=== PATIENT | female | born 2000 | race Two or more races ===

== ENCOUNTER 2024-12-02 14:46 | Emergency (ER) | payer BC, SELFPAY ==
[2024-12-02 14:48] VITALS: BP 147/106; PULSE 95; RESP 20; TEMP 36.8; O2SAT 99
--- NOTE | 2024-12-02 14:53 | ED.GENADULT ---
HPI - General Adult General Chief complaint: Allergic Reaction <Eloise Francis PA-C - Last Filed: 12/02/24 14:55> Stated complaint: throat feeling funny after taking Prozac <Eloise Francis PA-C - Last Filed: 12/02/24 14:55> Time Seen by Provider: 12/02/24 17:00 <Eloise Francis PA-C - Last Filed: 12/02/24 14:55> Focused HPI: 24-year-old female presents to the emergency department with concerns for an allergic reaction. Patient took her 1st dose of Prozac at 1:30 p.m. today approximately 30 minutes later began developing tightness in her throat. 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 She states she did have tingling in her tongue that lasted for about a minute but has resolved. She also had shortness of breath earlier but that has since resolved. She denies difficulty breathing, lip or tongue swelling, wheezing, nausea or vomiting, abdominal pain, rash. She has no known allergies. Denies other new exposures or medications. She has not taken anything for her symptoms. GENERAL: Well-appearing, well-nourished, and in no acute distress. HEAD: Normocephalic, atraumatic. ENT: No lip, tongue, oral or pharyngeal edema, no uvular hydrops. No airway compromise. No hoarseness. Patient is speaking in full sentences with a clear airway. CHEST: Clear to auscultation. ?No respiratory distress. No wheezing HEART: Regular rate and rhythm.? NEURO: ?Alert and oriented x3. Patient screened in triage and initial orders placed.? ?Additional care and disposition to be based upon?diagnostic testing and treatment. <Eloise Francis PA-C - Last Filed: 12/02/24 14:55> Focused HPI: 24-year-old female presents to the emergency department with concerns for an allergic reaction. Patient took her 1st dose of Prozac at 1:30 p.m. today approximately 30 minutes later began developing tightness in her throat. 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 She states she did have tingling in her tongue that lasted for about a minute but has resolved. She also had shortness of breath earlier but that has since resolved. She denies difficulty breathing, lip or tongue swelling, wheezing, nausea or vomiting, abdominal pain, rash. She has no known allergies. Denies other new exposures or medications. She has not taken anything for her symptoms. GENERAL: Well-appearing, well-nourished, and in no acute distress. HEAD: Normocephalic, atraumatic. ENT: No lip, tongue, oral or pharyngeal edema, no uvular hydrops. No airway compromise. No hoarseness. Patient is speaking in full sentences with a clear airway. CHEST: Clear to auscultation. ?No respiratory distress. No wheezing HEART: Regular rate and rhythm.? NEURO: ?Alert and oriented x3. Patient screened in triage and initial orders placed.? ?Additional care and disposition to be based upon?diagnostic testing and treatment. <MICHELLE Newman Last Filed: 12/02/24 20:18> Source: patient <MICHELLE Newman Last Filed: 12/02/24 20:18> Mode of arrival: ambulatory <MICHELLE Newman Last Filed: 12/02/24 20:18> Limitations: no limitations <MICHELLE Newman Last Filed: 12/02/24 20:18> History of Present Illness HPI narrative: Agreement with above HPI. At the time of my evaluation, patient is asymptomatic. She is reporting significant improvement of symptoms. Denies any difficulty breathing or swallowing, rash. <MICHELLE Newman Last Filed: 12/02/24 20:18> Related Data Allergies/adverse reactions: Allergies Allergy/AdvReac Type Severity Reaction Status Date / Time fluoxetine (From Prozac) Allergy Intermediate difficulty Verified 12/02/24 17:57 swallowing <MICHELLE Apodaca Last Filed: 12/02/24 14:55> Review of Systems Review of Systems: All systems reviewed & are unremarkable except as noted in HPI. <MICHELLE Newman Last Filed: 12/02/24 20:18> All systems reviewed & are unremarkable except as noted in HPI and below <MICHELLE Newman Last Filed: 12/02/24 20:18> Exam Narrative: GENERAL: Well appearing, well-nourished, non-toxic, in no acute distress. HEAD: Normocephalic, atraumatic. ENT: No lip, tongue, oral or pharyngeal edema, no uvular hydrops. No airway compromise. No hoarseness. No stridor or distress. Patient is speaking in full sentences with a clear airway. RESPIRATORY: Airway patent, respirations nonlabored. Clear to auscultation bilaterally, no rales, rhonchi, wheezing. No stridor. CARDIOVASCULAR: Regular rate and rhythm MUSCULOSKELETAL: Moves all extremities. No gross deformities. SKIN: Warm, dry, normal color. NEURO: A&O X3. Speech clear. PSYCHIATRIC: Appropriate mood and affect. Normal interaction. <MICHELLE Newman Last Filed: 12/02/24 20:18> Course Vital Signs Vital signs: Vital Signs Temperature 98.2 F 12/02/24 14:48 Pulse Rate 95 12/02/24 14:48 Respiratory Rate 20 12/02/24 14:48 Blood Pressure 147/106 H 12/02/24 14:48 Pulse Oximetry 99 12/02/24 14:48 Oxygen Delivery Room Air 12/02/24 14:48 Temperature 98.2 F 12/02/24 14:48 Pulse Rate 97 12/02/24 18:15 Respiratory Rate 16 12/02/24 18:15 Blood Pressure 147/106 H 12/02/24 14:48 Pulse Oximetry 99 12/02/24 18:15 Oxygen Delivery Room Air 12/02/24 16:18 <MICHELLE Apodaca Last Filed: 12/02/24 14:55> Vital Signs Temperature 98.2 F 12/02/24 14:48 Pulse Rate 95 12/02/24 14:48 Respiratory Rate 20 12/02/24 14:48 Blood Pressure 147/106 H 12/02/24 14:48 Pulse Oximetry 99 12/02/24 14:48 Oxygen Delivery Room Air 12/02/24 14:48 Temperature 98.2 F 12/02/24 14:48 Pulse Rate 97 12/02/24 18:15 Respiratory Rate 16 12/02/24 18:15 Blood Pressure 147/106 H 12/02/24 14:48 Pulse Oximetry 99 12/02/24 18:15 Oxygen Delivery Room Air 12/02/24 16:18 <Maria Isabel Fang PA-C - Last Filed: 12/02/24 20:18> Medical Decision Making MDM Narrative Medical decision making narrative: Patient presented to ED with allergic reaction from Prozac, take 1st dose today, developed tightness in throat, tingling of tongue. Vital signs are stable upon arrival. No signs of airway compromise or anaphylaxis. No respiratory distress, stridor. Patient given Solu-Medrol, Benadryl, Pepcid in the ED after MSE in triage. Upon my evaluation, approximately 2.5 hours later, patient completely asymptomatic, states she is ready to go home. Denies any further symptoms. Will discharge on short course of prednisone over the next couple of days, advised to continue Benadryl/Pepcid as needed. Advised to follow-up with psychiatrist for further evaluation and medication management, advised to discontinue Prozac. Given strict return precautions. She agrees with plan. Comfortable discharge home. Discharged in stable condition. <MICHELLE Newman Last Filed: 12/02/24 20:18> Medical Records Medical records reviewed: Yes I reviewed the external patient's medical records. <MICHELLE Newman Last Filed: 12/02/24 20:18> Vital Signs Vital Signs: Vital Signs Temperature 98.2 F 12/02/24 14:48 Pulse Rate 95 12/02/24 14:48 Respiratory Rate 20 12/02/24 14:48 Blood Pressure 147/106 H 12/02/24 14:48 Pulse Oximetry 99 12/02/24 14:48 Oxygen Delivery Room Air 12/02/24 14:48 Temperature 98.2 F 12/02/24 14:48 Pulse Rate 97 12/02/24 18:15 Respiratory Rate 16 12/02/24 18:15 Blood Pressure 147/106 H 12/02/24 14:48 Pulse Oximetry 99 12/02/24 18:15 Oxygen Delivery Room Air 12/02/24 16:18 <Eloise Francis PA-C - Last Filed: 12/02/24 14:55> Vital Signs Temperature 98.2 F 12/02/24 14:48 Pulse Rate 95 12/02/24 14:48 Respiratory Rate 20 12/02/24 14:48 Blood Pressure 147/106 H 12/02/24 14:48 Pulse Oximetry 99 12/02/24 14:48 Oxygen Delivery Room Air 12/02/24 14:48 Temperature 98.2 F 12/02/24 14:48 Pulse Rate 97 12/02/24 18:15 Respiratory Rate 16 12/02/24 18:15 Blood Pressure 147/106 H 12/02/24 14:48 Pulse Oximetry 99 12/02/24 18:15 Oxygen Delivery Room Air 12/02/24 16:18 <MICHELLE Newman Last Filed: 12/02/24 20:18> Discharge Plan Discharge Clinical Impression: Adverse reaction to drug Qualifiers: Encounter type: initial encounter Qualified Code(s): T50.905A - Adverse effect of unspecified drugs, medicaments and biological substances, initial encounter Allergic reaction Qualifiers: Encounter type: initial encounter Qualified Code(s): T78.40XA - Allergy, unspecified, initial encounter <MICHELLE Apodaca Last Filed: 12/02/24 14:55> Patient Disposition: Home <MICHELLE Apodaca Last Filed: 12/02/24 14:55> Condition: Stable <MICHELLE Apodaca Last Filed: 12/02/24 14:55> Instructions: Antibiotic Form, Adverse Drug Reaction (ED), General Allergic Reaction (ED) <MICHELLE Apodaca Last Filed: 12/02/24 14:55> Additional Instructions: Avoid any further use of Prozac. Follow-up with your psychiatrist for further medication management. Take steroids as prescribed over next 3 days. You may also continue Benadryl/Pepcid as needed for further allergy type symptoms. Return to the ED if you experience new or worsening concerns, difficulty breathing or swallowing, unable to keep down food or drink, shortness of breath, diffuse rash, or any other symptoms of concern. <MICHELLE Apodaca Last Filed: 12/02/24 14:55> Patient Language: Mozambican <Eloise Francis PA-C - Last Filed: 12/02/24 14:55> Prescriptions: New prednisone 20 mg tablet 40 mg PO DAILY 3 Days Qty: 6 0RF <Eloise Francis PA-C - Last Filed: 12/02/24 14:55> Follow-up/Referrals: PHYSICIAN NOT ON STAFF,NONSTAFF [Primary Care Provider] - <Eloise Francis PA-C - Last Filed: 12/02/24 14:55> Time of Disposition: 17:59 <Eloise Francis PA-C - Last Filed: 12/02/24 14:55> 17:59 <Maria Isabel Fang PA-C - Last Filed: 12/02/24 20:18>
[2024-12-02] MEDS: methylPREDNISolone SOD SUCC 125 MG VIAL IV PUSH (15:02)
[2024-12-02] MEDS: diphenhydrAMINE HCl INJ 50 MG/ML VIAL IV PUSH (15:03)
[2024-12-02] MEDS: FAMOTIDINE 20 MG/2 ML VIAL IV PUSH (15:03)
[2024-12-02 16:18] VITALS: O2SAT 99
[2024-12-02 16:20] VITALS: PULSE 95; RESP 14; O2SAT 99
[2024-12-02 18:15] VITALS: PULSE 97; RESP 16; O2SAT 99
--- OUTSIDE RECORDS SUMMARY | 2024-12-02 18:25 | XMS_ITS | Clinical Summary ---
Author Organization [address] Address [address] [place] [id number] Care Team Providers Care Auto Wash Buffer Name Role Phone Unknown, Notinfile Primary Care Provider Unavail able Allergies No known active allergies Medications citalopram (CeleXA) 40 mg tablet Take 1 tablet (40 mg total) by mouth daily Active norgestimate-eth inyl estradioL (Tri-Estarylla) 0.18/0.215/0.25 mg-35 mcg (28) per tablet Take 1 tablet by mouth daily Active Active Problems No known active problems Social History Tobacco Use Types Packs/Day Years Used Date Smoking Tobacco: Some Days Cigarettes Tobacco Cessation:Ready to Q uit: Not Asked; Counseling Given: Not Answered Alcohol Use Standard Drinks/Week Comments Yes 0 (1 standard drink = 0.6 oz pur e alcohol) Personal Safety Answer Date Recorded Have you ever been in or are you currently in a harmful physical or emotional relationship or is someone making you feel afraid or unsafe? Denies 05/04/2023 Comments No Sex and Gender Information Value Date Recorded Sex Assigned at Not on file Legal Sex Female 12:09 PM CDT Gender Identity Not on file Sexual Orientation Not on file Obstetrics History Last Filed Vital Signs Vital Sign Reading Time Taken Comments Blood Pressure 131/85 05/04/2023 5:30 PM CDT Pulse 74 05/04/2023 5:30 PM CDT Temperature 37.2 C (98.9 F) 05/04/2023 5:30 PM CDT Respiratory Rate 16 05/04/2023 5:30 PM CDT Oxygen Saturation 100% 05/04/2023 5:30 PM CDT Inhaled Oxygen Concentration - - Weight 49.9 kg (110 lb) 05/04/2023 5:30 PM CDT Height 149.9 cm (4' 11 ) 05/04/2023 5:30 PM CDT Body Mass Index 22.22 05/04/2023 5:30 PM CDT Plan of Treatment Health Maintenance Due Date Last Done Comments Cervical Cancer Screening 1999 Depression Screening 1999 Hepatitis C Screening 1999 Pneumococcal vaccine <65 (1 of 1 - PPSV23) 2005 09/19/2000, 03/28/2000, 01/11/2000, Additional history exists Regular Well Visit/Exam 18-64 2017 Influenza Vaccine (#1) 2024 , 07/27/2014, 06/18/2004, Additional history exists DTaP/Tdap/Td Vaccine (8 - Td or Tdap) 12/19/2026 12/19/2016, 03/16/2010, 03/31/2005, Additional history exists Hepatitis B Screening Completed 1999 , 1999, 1999 Varicella Vaccines Completed 03/28/2006, 03/28/2000 HPV Vaccines Completed 11/26/2013, 05/24, 04/08/2013 Insurance [employer] OOS [employer] OOS Member Subscriber Plan / Payer (Ef fective 2022-Present) Name:Aisha Fofana Relation to Subscriber:Child Name:FRAN FOFANA Date of :1962 Address: [address] [place] [address] Payer ID:[id number] (NAIC) Type:[employer] Address: [facility] [id number] [place] [id number] Care Teams Auto Wash Buffer Relationship Specialty Start Date End Date Unknown, Notinfile PCP - General 05/04/23
--- OUTSIDE RECORDS SUMMARY | 2024-12-02 18:25 | XMS_ITS | Clinical Summary ---
Author Organization [facility] Address [address] [place] [address] Care Team Providers Care Air And Water Filler Name Role Phone Pcp, [facility] Primary Care Provider Un available Source Comments [facility],non-owned Affiliates and Associated Physician Practices is amultiple site organization consisting of ambulatory clinics and hospital sitesin [place], [place], [place]. This disclosure is being madepursuant to the Care Everywhere program and may not contain all information available regarding this patient. Last updated 18.[facility] [employer] Allergies No known active allergies Medications * Be aware that medications may not be up to date on this document. Alwaysverify current medications with the patient. norgestim-eth estrad triphasic 0.18/0.215/0.25 MG-35 MCG tablet Take 1 tablet by mouth once daily Active citalopram (CeleXA) 40 MG tabletIndication s:Mixed obsessional thoughts and acts TAKE 1 TABLET BY MOUTH EVERY DAY 90 tablet 10/08/2023 Active Active Problems Problem Noted Date Diagnosed Date Mixed obsessional thoughts and acts 03/06/2022 Overview (05/10/2022): 05/10/2022: increased her citalopram to 40 mg daily at last visit. hasn't had any side effects with medication or any issues with it. however, hasn't noticed much of a difference her medication in her symptoms. Hasn't noticed much of a difference in her baseline anxiety symptoms of depression or anxiety. hasn't noticed any improvement in her OCD symptoms. she has a cat and since our last visit started needing to find her cat before she leaves the house. Current ways in which OCD impacts her day: -Goes back into the house to check the stove: every time that she leave the home and about 2-3 times a week in addition to this where she goes twice. -Walks to the end of the parking lot (5 minutes) before turning around to check to see if her car is off. -Looks for the cat to see if cat in the house before leaving -checking roommates cigarette butts to make sure they are out. Assessment/Plan: -no side effects with medication and symptoms of baseline depression and anxiety are well controlled. -OCD symptoms still uncontrolled, however. I've provided her with therapy options that are low cost for her to start. Discussed the role of therapy in the treatment of OCD -will continue citalopram at 40 mg daily. After therapy, would likely benefit from a dose beyond FDA labeled max dose; however, will have her see psychiatry to determine the need for this. Immunizations Immunization Administration Dates Next Due Share Some Style primary monoval ent 12+ yr 0.3mL Purple cap 05/23/2021 DTaP VACCINE IM (6wk-6yrs) 03/31/2005,,1999,07/29,1999 FLU VACCINE TRI IIV3 SPLIT P F IM (FLUVIRIN) 07/27/2014 FLU, HISTORIC VACCINE 06/18/2004,07/15/2003 HEP A PEDS 2 DOSE 03/28/2006,03/31/2005 HEP B VACCINE, PED/ADOL 1999,1999, HIB-HAEMOPHILUS INFLUENZAE B CONJUGATE VACCINE 09/19/2000,01/11/2000,1999 HIB-PRP-T 4 DOSE 1999 Human Papilloma Virus Jeni valent Vaccine 11/26/2013,06/13/2013,04/08/2013 INFLUENZA VACCINE 06/18/2004,07/15/2003 INFLUENZA VACCINE, QUADR. (F LUZONE; FLULAVAL; FLUARIX; AFLURIA QUADRIVALENT; 6MO+), 0.5 ML (IIV4) 05/10/2022 MENINGOCOCCAL ACWY (MCV4P) VAC IM 12/19/2016,06/2011 MMR VACCINE 03/31/2005,03/28/2000 PNEUMOCOCCAL PCV7 CONJ, PEDS 09/19/2000, 03/28/2000,01/11/2000,11/13 POLIO IPV 03/31/2005, 0,1999,06/09 TDAP (7yrs+) 12/19/2016,03/16/2010 VARICELLA 03/28/2006,03/28/2000 Family History * Patient is adopted Medical History Relation Name Comments Cancer - Esophageal Maternal Grandmother Relation Name Status Comments Maternal Grandmother Social History Tobacco Use Types Packs/Day Years Used Date Smoking Tobacco: Never Smokeless Tobacco: Never Tobacco Cessation:Counseling Given: No Alcohol Use Standard Drinks/Week Comments Yes 0 (1 standard drink = 0.6 oz pur e alcohol) occasionally PHQ-2 Answer Date Recorded Patient Health Questionnaire-2 Score 0 05/07/2023 Comments No Sex and Gender Information Value Date Recorded Sex Assigned at Not on file Legal Sex Female 8:22 PM CDT Gender Identity Not on file Sexual Orientation Not on file Occupation Industry Job Start Date Job End Date 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 Not on file Not on 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 Not on file Not on fi le Last Filed Vital Signs Vital Sign Reading Time Taken Comments Blood Pressure 129/76 05/07/2023 3:41 PM CDT Pulse 87 05/07/2023 3:41 PM CDT Temperature 36.7 C (98.1 F) 05/07/2023 3:41 PM CDT Respiratory Rate 16 11/24/2020 9:05 AM CDT Oxygen Saturation 99% 05/07/2023 3:41 PM CDT Inhaled Oxygen Concentration - - Weight 51.3 kg (113 lb) 05/07/2023 3:41 PM CDT Height 149.9 cm (4' 11 ) 05/07/2023 3:41 PM CDT Body Mass Index 22.82 05/07/2023 3:41 PM CDT Plan of Treatment Health Maintenance Due Date Last Done Comments COVID-19 VACCINE ( season) 2024 05/23/2021, 10/31/2020, 10/05/2020 DEPRESSION SCREENING 07/23/2024 05/07/2023, 12/22/19 22 PAP SMEAR 03/31/2025 03/31/2022 DTAP/TDAP/TD VACCINES (8 - Td or Tdap) 12/19/2026 12/19/2016, 03/16/2010, 03/31/2005, Additional history exists ZOSTER VACCINE (1 of 2) 2049 HEPATITIS B VACCINE Completed 1999, 1999, 1999 HIB VACCINE Completed 09/19/2000, 12/22, 1999, Additional history exists PNEUMOCOCCAL VACCINE Completed 09/19/2000, 03/28/2000, 01/11/2000, Additional history exists HPV VACCINE Completed 11/26/2013, 05/24, 04/08/2013 MENINGOCOCCAL GROUPS A/C/Y/W VACCINE Completed 12/19/2016, 04/03/2011 CHLAMYDIA/GONORRHEA SCREENING Discontinued 03/06/2022 HEPATITIS C SCREENING Completed 03/06/2022 HIV SCREENING Completed 03/06/2022 INFLUENZA VACCINE Completed 05/03/2024, , 07/27/2014, Additional history exists MENINGOCOCCAL (Group B) VACCINE SHARED DECISION-MAKING Aged Out No longer eligible based on patient's age to complete this topic Procedures Procedure Name Priority Date/Time Associated Diagnosis Comments PAP IG RFLX HPV HR ASCUS RFLX 16/18/45 Routine 03/31/2022 1:35 PM CDT Well woman exam with routine gynecological exam HEPATITIS C ANTIBODY 03/06/2022 11:37 AM CDT CHLAMYDIA + GC AMPLIFIED PROBE 03/06/2022 11:37 AM CDT HIV-1 HIV-2 ANTIBODY + HIV P24 AG PANEL Routine 03/06/2022 11:37 AM CDT Screening for HIV without presence of risk factors from Last 3 Months or Most Recently Relevant to Health Maintenance Results * PAP IG RFLX HPV HR ASCUS RFLX 16/18/45 (03/31/2022 1:35 PM CDT) Diagnosis [facility] ACCOUNT BILL Comment:NEGATIVE FOR INTRAEP ITHELIAL LESION OR MALIGNANCY. Specimen Adequacy [facility] ACCOUNT BILL Comment: Satisfactory for evaluation. Endocervical and/or squamous metaplastic cells (endocervical component) are present. Clinician Provided ICD10 [facility] ACCOUNT BILL Comment: Z01.419 Z30.09 Performed by [facility] ACCOUNT BILL Comment:Aixa bedolla, Palm And Back [employer]ger (ASCP) Comment . [facility] ACCOUNT BILL Note [facility] ACCOUNT BILL Comment: The Pap smear is a screening test designed to aid in the detection of premalignant and malignant conditions of the uterine cervix. It is not a diagnostic procedure and should not be used as the sole means of detecting cervical cancer. Both false-positive and false-negative reports do occur. . IGLBP CPT Code Automation [facility] ACCOUNT BILL Comment: This liquid based ThinPrep(R) pap test was screened with the use of an image guided system. Note [facility] ACCOUNT BILL Comment: The HPV DNA reflex criteria were not met with this specimen result therefore, no HPV testing was performed. . Pathology/Cytolog y ENTIRE ENDOCERVIX / Unknown 03/31/2022 1:35 PM CDT 04/03/2022 Narrative [facility] ACCOUNT BILL - 04/05/2022 3:08 PM CDT No. of containers..01 ThinPrep Vial Resulting Agency Comment Lab Testing performed at: [facility] [id number] Raven Barrett MD LAB - PATHOLOGY/CYTOLOGY ORDERAB LES Final Result [facility] ACCOUNT BILL [address] [place] [address] * HIV-1 HIV-2 ANTIBODY + HIV P24 AG PANEL (03/06/2022 11:37 AM CDT) HIV Screen 4th Generation w Reflex Non Reactive Non Reactive [facility] ACCOUNT BILL Comment: HIV Negative HIV-1/HIV-2 antibodies and HIV-1 p24 antigen were NOT detected. There is no laboratory evidence of HIV infection. Blood BLOOD SPECIMEN / Unknown 03/06/2022 11:37 AM CDT 03/06/2022 Narrative Resulting Agency Comment [facility] [address] [facility] [phone] [place] Janet Page ORAL HEALTH THERAPIST-REGULATORY SUBMISSIONS ASSOCIATE LAB - CHEMISTRY ORDERABLES Final Result [facility] ACCOUNT BILL [address] [place] [address] * CHLAMYDIA + GC AMPLIFIED PROBE (03/06/2022 11:37 AM CDT) Chlamydia JACEY Urine Negative Negative [facility] ACCOUNT BILL GC JACEY Urine Negative Negative [facility] ACCOUNT BILL 03/06/2022 11:3 7 AM CDT 03/06/2022 Narrative Resulting Agency Comment Lab Testing performed at: [facility] [id number] Janet Page ORAL HEALTH THERAPIST-REGULATORY SUBMISSIONS ASSOCIATE LAB - MICROBIOLOGY ORDERABL ES Final Result Performing Organization Address City/[facility] Co de Phone Number [facility] ACCOUNT BILL [address] [place] [address] * HEPATITIS C ANTIBODY (03/06/2022 11:37 AM CDT) Hepatitis C Antibody Non Reactive Non Reactive [facility] ACCOUNT BILL Comment: Non Reactive - Antibodies to Hepatitis C virus (HCV) were no t detected, result does not exclude early acute HCV infection. 03/06/2022 11:3 7 AM CDT 03/06/2022 Narrative Resulting Agency Comment Lab Testing performed at: [facility] [address] [facility] [id number] Janet Page ORAL HEALTH THERAPIST-REGULATORY SUBMISSIONS ASSOCIATE LAB - CHEMISTRY ORDERABLES Final Result [facility] ACCOUNT BILL [address] [place] [address] from Last 3 Months or Most Recently Relevant to Health Maintenance Insurance [facility] Care Teams Air And Water Filler Relationship Specialty Start Date End Date Mali Luna [facility] PCP - General 02/16/23
--- OUTSIDE RECORDS SUMMARY | 2024-12-02 18:26 | XMS_ITS | Referral Summary ---
Author Organization [address] Address [address] [place] [phone] Care Team Providers Care Loans Officer Name Role Phone Unknown, Notinfile Primary Care [...] on file Sexual Orientation Not on file Last Filed Vital Signs Vital Sign Reading [...] 05/04/2023 5:30 PM CDT Plan of Treatment Not on file Insurance [employer] [facility] [employer] Care Teams Loans Officer Relationship Specialty Start Date End Date Unknown, Notinfile PCP - General 05/04/23
== END 2024-12-02 18:20 | disposition home or self-care (01) ==
LOC: ANHED 18:24
PROVIDERS: Emergency Provider Physician Assistant
DX: T78.40XA Allergy, unspecified, initial encounter (principal); T43.225A Adverse effect of selective serotonin reuptake inhibitors, initial encounter; R20.2 Paresthesia of skin
CPT/HCPCS: 96374; 96375; 99284; J1200; J2919